=== PATIENT | female | born 1945 | race Caucasian/White ===

== ENCOUNTER 2021-06-04 06:25 | Day surgery (SDC) | payer MEDICARE, OTHER ==
[2021-06-04] MEDS ORDERED: fentaNYL 100 MCG/2 ML SDV IV ONE ×3 (06:26→07:29)
[2021-06-04] MEDS ORDERED: Midazolam 1 MG/ML 2 ML SDV IV ONE ×3 (06:26→07:30)
[2021-06-04] MEDS ORDERED: Dextrose 5%-0.45% NaCl 1,000 ML IV SCH (06:30)
[2021-06-04] MEDS ORDERED: fentaNYL 100 MCG/2 ML SDV ONE (06:53)
[2021-06-04] MEDS ORDERED: Midazolam 1 MG/ML 2 ML SDV ONE (06:53)
--- NOTE | 2021-06-04 08:53 | OR ---
DATE: 06/04/2021 PROCEDURES: Esophagogastroduodenoscopy, narrow-band imaging, and multiple pinch biopsies. INSTRUMENT USED: GIF-HQ190 Olympus video panendoscope. PREMEDICATIONS: No oral or topical anesthesia used. Fentanyl 100 mcg intravenous, Versed 2 mg intravenous, nasal O2 cannula. The procedure was done under pulse oximetry, BP recording, and air sampling and monitoring. INDICATION: The patient with persistent heartburn, related chest discomfort as well as dysphagia unexplained and not responsive to medical measures, on long- term alendronate and aspirin and also on Famotidine. Esophagogastroduodenoscopy is performed for detection of any active erosive lesions, Golden esophagus and/or malignancy also under consideration, H pylori status to be determined, esophageal dilatations if indicated, endoscopic hemostasis therapy if needed. PROCEDURE IN DETAIL: The scope was passed with ease. Adequate visualization of the esophagus was made from proximal to distal areas. No upper esophageal lesions identified. No distal esophageal stricture. No uphill or downhill esophageal varices. No Kerri-Jensen tear. Grade D erosive changes were noted by [place] criteria. No esophageal polyp or tumor mass identified. Large sliding hiatal hernia was noted. No proximal gastric varices noted. Gastric fundus examination by retroflexion showed multiple diminutive benign-appearing polyps. No gastric ulcer, malignant mass, or vascular ectasia identified. 5 mm sized antral polyp was noted, multiple pinch biopsies were obtained and sent for histopathology. Duodenal bulb showed no ulcer. Visualized second part of the duodenum was unremarkable. Multiple pinch biopsies were taken from the gastric antrum and proximal body and sent for PyloriTek test for H pylori and histopathology. No bleeding was noted from any of the visualized areas at the completion of examination. NBI views were obtained of the distal esophagus. Photographs were taken of the duodenal bulb, gastric antrum, fundus, and distal esophagus. IMPRESSION: 1. Grade D gastroesophageal reflux disease. 2. Sliding hiatal hernia. 3. Multiple gastric polyps. The patient tolerated the procedure well. [facility] /[id number]
== END 2021-06-04 09:45 | disposition home or self-care (01) ==
LOC: DL.ENDO 06:25
PROVIDERS: ATTEND Internal Medicine Gastroenterology
DX: E75.5 Other lipid storage disorders (principal); K31.7 Polyp of stomach and duodenum; R13.10 Dysphagia, unspecified; K44.9 Diaphragmatic hernia without obstruction or gangrene; K21.9 Gastro-esophageal reflux disease without esophagitis; E66.09 Other obesity due to excess calories; I25.10 Atherosclerotic heart disease of native coronary artery without angina pectoris; E78.5 Hyperlipidemia, unspecified; Z90.49 Acquired absence of other specified parts of digestive tract; Z98.890 Other specified postprocedural states; Z82.49 Family history of ischemic heart disease and other diseases of the circulatory system; Z68.38 Body mass index [BMI] 38.0-38.9, adult
CPT/HCPCS: 87077; 88305; 88341; 88342; J2250; J3010; J7042

== ENCOUNTER 2021-06-17 05:21 | Day surgery (SDC) | payer MEDICARE, OTHER ==
[2021-06-17] MEDS ORDERED: Midazolam 1 MG/ML 2 ML SDV IV ONE ×7 (05:22→06:48)
[2021-06-17] MEDS ORDERED: fentaNYL 100 MCG/2 ML SDV IV ONE ×3 (05:22→06:37)
[2021-06-17] MEDS ORDERED: Midazolam 1 MG/ML 2 ML SDV ONE (05:56)
[2021-06-17] MEDS ORDERED: fentaNYL 100 MCG/2 ML SDV ONE (05:56)
[2021-06-17] MEDS ORDERED: Sodium Chloride 0.9% 10 ML Syringe FLUSH PRN (07:51)
--- NOTE | 2021-06-17 07:51 | OR ---
DATE: 06/17/2021 PROCEDURE: Total colonoscopy and multiple cold snare polypectomies. INSTRUMENT USED: PCF-H190DL Olympus video colonoscope. PREMEDICATIONS: Fentanyl 100 mcg intravenous, Versed 4 mg intravenous. Nasal O2 cannula. The procedure was done under pulse oximetry, BP recording, and media monitor. INDICATION: Screening colonoscopic examination is done for detection of any polypoid lesions and removal, endoscopic hemostasis therapy if needed. DESCRIPTION OF PROCEDURE: Initial rectal exam showed external hemorrhoidal tags. Rigid anoscopy was normal. The colonoscope was passed with ease. Numerous scattered diverticula were noted, more so in the left colon along with deformity. The scope was passed with ease up to the ileocecal area. Photographs were taken of the cecum showing benign-appearing polyps, 2 in number, 1 cm and 5 mm sized, photographs were taken, piecemeal cold snare polypectomy was done and the tissues were retrieved and sent for histopathology. Polypectomy sites were found to be clean, photographs were taken. No bleeding was noted from any of the visualized areas at the commencement of the examination. The bowel preparation was found to be adequate, [place] scale 2 in right and left colon, 3 in transverse colon, total score 7. No stricture. No vascular ectasia. No large isolated ulcerations seen. No evidence of diffuse inflammatory bowel disease in the form of friability, contact bleeding or ulcerations. Probing the proximal sides of folds and flexures using adequate distention and clearing up the stool, withdrawal of the scope was made, cecum to rectum time over 6 minutes. No bleeding was noted from any of the visualized areas at the completion of examination. IMPRESSION: 1. External hemorrhoids. 2. Diverticulosis. 3. Cecal polyps. The patient tolerated the procedure well. [facility] /[id number]
[2021-06-17] MEDS ORDERED: Dextrose 5%-0.45% NaCl 1,000 ML IV SCH (08:00)
== END 2021-06-17 09:14 | disposition home or self-care (01) ==
LOC: DL.ENDO 05:21
PROVIDERS: ATTEND Internal Medicine Gastroenterology
DX: Z12.11 Encounter for screening for malignant neoplasm of colon (principal); D12.0 Benign neoplasm of cecum; K64.4 Residual hemorrhoidal skin tags; K57.30 Diverticulosis of large intestine without perforation or abscess without bleeding; K21.9 Gastro-esophageal reflux disease without esophagitis; I25.10 Atherosclerotic heart disease of native coronary artery without angina pectoris; M81.0 Age-related osteoporosis without current pathological fracture; F32.9 Major depressive disorder, single episode, unspecified
CPT/HCPCS: 45385; J2250; J3010; J7042; 88305

== ENCOUNTER → 2021-09-01 | Day surgery (SDC) | payer MEDICARE, OTHER ==
[~2021-09-01] MED LIST: Dextrose 5%-0.45% NaCl 1,000 ML IV SCH; Midazolam 1 MG/ML 2 ML SDV IV ONE; Midazolam 1 MG/ML 2 ML SDV ONE; Sodium Chloride 0.9% 10 ML Syringe FLUSH PRN; fentaNYL 100 MCG/2 ML SDV IV ONE; fentaNYL 100 MCG/2 ML SDV ONE
--- NOTE | 2021-09-01 09:11 | OR ---
DATE: 09/01/2021 PROCEDURES: Esophagogastroduodenoscopy, narrow-band imaging, and multiple pinch biopsies. INSTRUMENT USED: GIF-HQ190 Olympus video panendoscope. PREMEDICATIONS: No oral or topical anesthesia used. Fentanyl 100 mcg intravenous, Versed 2 mg intravenous. Nasal O2 cannula. The procedure was done under pulse oximetry, BP recording, and cotton program technician. INDICATIONS: The patient with previously documented grade D GERD. Treated with PPI. Followup esophagogastroduodenoscopy is done for verification of total healing of esophageal ulcers; biopsies to be obtained for any evidence of Golden esophagus and/or dysplasia, malignancy also under consideration; and endoscopic hemostasis therapy if needed. PROCEDURE IN DETAIL: The scope was passed with ease. Adequate visualization of the esophagus was made from proximal to distal areas. No upper esophageal lesions identified. No distal esophageal stricture. No uphill or downhill esophageal varices. No Kerri-Jensen tear. No evidence of erosive esophagitis by [place] criteria. No esophageal polyp or tumor mass identified. Z-line was seen at around 30 cm distal to the oral verge. Patch of pink columnar epithelium was noted. Multiple pinch biopsies, 4 in number, were taken and sent for histopathology for any evidence of intestinal metaplasia. Large sliding hernia was noted. No proximal gastric varices noted. Gastric fundus examination by retroflexion showed no polypoid lesions. No gastric ulcer, malignant mass, or vascular ectasia identified. Duodenal bulb showed no ulcer. Visualized second part of duodenum was unremarkable. No bleeding was noted from any of the visualized areas at the completion of examination. Photographs were taken of the distal esophagus. IMPRESSION: Sliding hiatal hernia. The patient tolerated the procedure well. [facility] /[id number]
== END | disposition home or self-care (01) ==
LOC: DL.ENDO 05:34
PROVIDERS: ATTEND Internal Medicine Gastroenterology
DX: K21.00 Gastro-esophageal reflux disease with esophagitis, without bleeding (principal); K22.10 Ulcer of esophagus without bleeding; K44.9 Diaphragmatic hernia without obstruction or gangrene; E66.09 Other obesity due to excess calories; I25.10 Atherosclerotic heart disease of native coronary artery without angina pectoris; Z86.010 Personal history of colon polyps; Z68.41 Body mass index [BMI] 40.0-44.9, adult
CPT/HCPCS: 88305; J2250; J3010; J7042